=== PATIENT | male | born 1970 ===

== ENCOUNTER → 2020-05-22 | Outpatient (CLI) | payer OTHER ==
[~2020-05-22] MED LIST: Artificials Tea30 ML BOTHEYES; ERYT1OIN BOTHEYES; LEVSOD50 PO; LOSA50 PO; Omeprazole20 M1 PO; Prilosec Otc20 MG PO; SIMV10 PO; Simvastatin20 MG PO; Synthroid50 MCG PO
[2020-05-22 12:38] LABS: BASOPHILS ABSOLUTE AUTO 0.02 K/mm3 (0.00-0.23); BASOPHILS PERCENT AUTO 0 % (0-2); EOSINOPHILS ABSOLUTE AUTO 0.21 K/mm3 (0.00-0.68); EOSINOPHILS PERCENT AUTO 3 % (0-6); Hematocrit 47.3 % (37.0-53.0); Hemoglobin 16.6 g/dL (13.5-17.5); IMMATURE GRAN ABSOLUTE AUTO 0.02 K/mm3 (0.00-0.10); IMMATURE GRAN PERCENT AUTO 0 % (0-1); LYMPHOCYTES ABSOLUTE AUTO 2.43 K/mm3 (0.84-5.20); LYMPHOCYTES PERCENT AUTO 32 % (21-46); MONOCYTES ABSOLUTE AUTO 0.55 K/mm3 (0.16-1.47); MONOCYTES PERCENT AUTO 7 % (4-13); Mean Corpuscular HGB 30.9 pg (26.0-34.0); Mean Corpuscular HGB Conc 35.1 g/dL (31.5-36.5); Mean Corpuscular Volume 88 fL (80-100); Mean Platelet Volume 11.5 fL (9.1-12.4); NEUTROPHILS ABSOLUTE AUTO 4.42 K/mm3 (1.96-9.15); NEUTROPHILS PERCENT AUTO 58 % (41-73); Platelet Count 180 K/mm3 (150-400); RDW Standard Deviation 38.2 fL (35.1-46.3); Red Blood Cell Count 5.38 M/mm3 (4.30-5.90); White Blood Cell Count 7.65 K/mm3 (4.00-11.30)
[2020-05-22 13:15] LABS: Alanine Aminotransfer (ALT/SGP 38 U/L (12-78); Albumin, Blood 3.5 g/dL (3.4-5.0); Albumin/Globulin Ratio 0.9 (0.8-1.8); Alk Phos 100 U/L (50-136); Anion Gap 4 mmol/L (6-16); Aspartate Aminotrans (AST/SGOT 18 U/L (12-37); Bilirubin, Total 0.7 mg/dL (0.1-1.0); Blood Urea Nitrogen 14 mg/dL (8-24); Bun/Creatinine Ratio 16.2 (12.0-20.0); CHOL/HDL RATIO 4.7; CO2, Blood 28 mmol/L (21-32); Calcium, Blood 8.6 mg/dL (8.5-10.1); Chloride, Blood 107 mmol/L (98-108); Cholesterol 213 mg/dL (50-200); Creatinine, Blood 0.86 mg/dL (0.60-1.20); Globulin, Blood 4.1 g/dL (2.2-4.0); Glomerular Filtration Rate >60 (60-); Glucose, Blood 114 mg/dL (70-99); HDL Cholesterol 45 mg/dL (>39); LDL/HDL RATIO 2.9; Low Density Lipoprotein Chol 130 mg/dL (0-110); Potassium, Blood 4.1 mmol/L (3.5-5.5); Sodium, Blood 139 mmol/L (136-145); Total Protein, Blood 7.6 g/dL (6.4-8.2); Triglycerides 190 mg/dL (30-160); Very Low Density Lipoprot Chol 38 mg/dL (6-32)
== END | disposition home or self-care (01) ==
LOC: LAB 08:59 → LAB SHORT 08:59
PROVIDERS: Nurse Practitioner Family
DX: I10 Essential (primary) hypertension (principal); R73.03 Prediabetes; E66.01 Morbid (severe) obesity due to excess calories
CPT/HCPCS: 80053; 80061; 83036; 84443; 85025

== ENCOUNTER 2020-08-05 07:07 | Day surgery (SDC) | payer OTHER ==
[~2020-08-05] VITALS: Ht 170.2 cm; Wt 116.7 kg
--- NOTE | 2020-08-05 07:59 | NUR ---
History, Chart, Medications and Allergies reviewed before start of procedure. Patient states colon prep results clear. BUDGET COORDINATOR HERE.
--- NOTE | 2020-08-05 08:14 | NUR ---
08/05/20 0814 Jac Hernandez PATIENT DETERMINED TO BE ASA APPROPRIATE FOR FENTANYL AND VERSED SEDATION PRIOR TO START OF PROCEDURE BY DR. SHARIF. 3-LEAD EKG REVIEWED WITH PHYSICIAN PRIOR TO START OF PROCEDURE. Patient to ENDO 1. History, Chart, Medications and Allergies reviewed before start of procedure. MONITOR INTACT WITH CONTINUOUS PULSE OXIMETRY AND INTERMITTENT BP. History, Chart, Medications and Allergies reviewed before start of procedure. Patient confirms NPO status and agrees with scheduled surgery. PATIENT DETERMINED TO BE ASA APPROPRIATE FOR PROPOFOL SEDATION PRIOR TO START OF PROCEDURE BY 3-LEAD EKG REVIEWED WITH PHYSICIAN PRIOR TO START OF PROCEDURE. MONITOR INTACT WITH CONTINUOUS PULSE OXIMETRY AND INTERMITTENT BP.KOLE
--- NOTE | 2020-08-05 09:13 | NUR ---
REVIEWED DISCHARGE INSTRUCTIONS WITH PT AND HIS DAUGHTER. FIBER PAMPHLET PROVIDED. PT GIVEN SAMMARINESE DISCHARGE INSTRUCTIONS. SPOKE WITH [employer] FOR TRANSFER BACK HOME. [facility] WILL TRANSFERING PT HOME. PT HAS EAT AND TOLERATED FOOD WELL. Discharged via wheelchair to private car for ride home.
== END 2020-08-05 22:55 | disposition home or self-care (01) ==
LOC: ORSCMMR 07:07 → ORD 08:30 → ORSCMMR 08:30
PROVIDERS: Internal Medicine Gastroenterology
PROC: 0DBN8ZX Excision of Sigmoid Colon, Via Natural or Artificial Opening Endoscopic, Diagnostic (ICD-10-PCS; principal; 2020-08-05 08:30)
DX: K62.5 Hemorrhage of anus and rectum (principal); D12.5 Benign neoplasm of sigmoid colon; I10 Essential (primary) hypertension; K21.9 Gastro-esophageal reflux disease without esophagitis; Z79.899 Other long term (current) drug therapy
CPT/HCPCS: 88305; J2250; J2704; J3010; J7120

== ENCOUNTER 2021-11-10 11:40 | Emergency (ER) | payer OTHER ==
[~2021-11-10] VITALS: Ht 170.2 cm; Wt 117.9 kg
[2021-11-10] MEDS ORDERED: BANOPHEN25 MG PO (12:47)
[2021-11-10] MEDS ORDERED: METPRE4DP PO (12:47)
[2021-11-10] MEDS ORDERED: Triamcinolone A15 G3 TOP (15:33)
== END 2021-11-10 15:37 | disposition home or self-care (01) ==
LOC: ER 11:40
DX: L23.7 Allergic contact dermatitis due to plants, except food (principal); Z79.899 Other long term (current) drug therapy
CPT/HCPCS: J1100

== ENCOUNTER → 2022-08-26 | Outpatient (CLI) | payer OTHER ==
[~2022-08-26] MED LIST changes: +BANOPHEN25 MG PO; +METPRE4DP PO; +Triamcinolone A15 G3 TOP
[2022-08-26 11:55] LABS: BASOPHILS ABSOLUTE AUTO 0.03 K/mm3 (0.00-0.23); BASOPHILS PERCENT AUTO 0 % (0-2); EOSINOPHILS ABSOLUTE AUTO 0.36 K/mm3 (0.00-0.68); EOSINOPHILS PERCENT AUTO 4 % (0-6); Hematocrit 45.3 % (37.0-53.0); Hemoglobin 16.1 g/dL (13.5-17.5); IMMATURE GRAN ABSOLUTE AUTO 0.02 K/mm3 (0.00-0.10); IMMATURE GRAN PERCENT AUTO 0 % (0-1); LYMPHOCYTES ABSOLUTE AUTO 2.63 K/mm3 (0.84-5.20); LYMPHOCYTES PERCENT AUTO 32 % (21-46); MONOCYTES ABSOLUTE AUTO 0.62 K/mm3 (0.16-1.47); MONOCYTES PERCENT AUTO 8 % (4-13); Mean Corpuscular HGB 31.1 pg (26.0-34.0); Mean Corpuscular HGB Conc 35.5 g/dL (31.5-36.5); Mean Corpuscular Volume 88 fL (80-100); Mean Platelet Volume 11.6 fL (9.1-12.4); NEUTROPHILS ABSOLUTE AUTO 4.52 K/mm3 (1.96-9.15); NEUTROPHILS PERCENT AUTO 55 % (41-73); Platelet Count 197 K/mm3 (150-400); RDW Coefficient Variation 12.7 % (11.7-14.2); RDW Standard Deviation 40.3 fL (35.1-46.3); Red Blood Cell Count 5.17 M/mm3 (4.30-5.90); White Blood Cell Count 8.18 K/mm3 (4.00-11.30)
[2022-08-26 12:07] LABS: Albumin, Blood 3.6 g/dL (3.4-5.0); Albumin/Globulin Ratio 0.9 (0.8-1.8); Bilirubin, Total 0.7 mg/dL (0.1-1.0); Calcium, Blood 8.7 mg/dL (8.5-10.1); Creatinine, Blood 0.92 mg/dL (0.60-1.20); Globulin, Blood 3.8 g/dL (2.2-4.0); Potassium, Blood 3.7 mmol/L (3.5-5.5); Total Protein, Blood 7.4 g/dL (6.4-8.2)
== END | disposition home or self-care (01) ==
LOC: LAB SHORT 09:33 → LAB 09:33
PROVIDERS: Nurse Practitioner Family
DX: I10 Essential (primary) hypertension (principal); R73.03 Prediabetes
CPT/HCPCS: 80053; 83036; 85025

== ENCOUNTER 2024-06-21 06:13 | Day surgery (SDC) | payer OTHER ==
[2024-06-21] VITALS (12 sets, daily range): BP systolic 115–1025; BP diastolic 69–100
[~2024-06-21] VITALS: Ht 170.2 cm; Wt 127.7 kg
[~2024-06-21 06:13] MED LIST changes: +ATOR20 PO; +DOXA4 PO; +METAMUCIL POWD798 GM; +METF500 PO; +OMEP20ER PO; +SPIR25 PO
[2024-06-21] MEDS ORDERED: Ampicillin Sod/Sulbactam Sod 3 GM in NS 100 ML IV SCH (06:20)
[2024-06-21] MEDS ORDERED: Lactated Ringer's 1,000 ML IV SCH (06:20)
[2024-06-21] MEDS ORDERED: Acetaminophen 500 MG Tab PO ONE (07:05)
[2024-06-21] MEDS ORDERED: Ondansetron HCl 2 MG / ML 2ML Vial ONE (07:08)
[2024-06-21] MEDS ORDERED: Lidocaine HCl 2% 20 ML MDV ONE (07:08)
[2024-06-21] MEDS ORDERED: propofoL 20 ML IV ONE (07:08)
[2024-06-21] MEDS ORDERED: Rocuronium Bromide 10 MG/ML 5ML Injection IV ONE (07:08)
[2024-06-21] MEDS ORDERED: Bupivacaine 0.5% HCl 5 MG/ML 30MLVIAL ONE (07:10)
[2024-06-21] MEDS ORDERED: FentaNYL Citrate 50 MCG/ML 2 ML Injection ONE (07:14)
[2024-06-21] MEDS ORDERED: Labetalol HCL 5 MG/ML 4ML Injection (Single Dose) ONE (07:35)
[2024-06-21] MEDS ORDERED: Lidocaine 2%-Epineph 1:200000 20 ML SDV ONE (07:47)
[2024-06-21] MEDS ORDERED: Sugammadex Sodium 200 MG/2ML SDV (100 MG/ML) ONE (08:01)
[2024-06-21] MEDS ORDERED: OxyCODONE 5 mg/Acetamin 325 mg TABLET PO PRN (08:35)
--- NOTE | 2024-06-21 09:58 | NUR ---
Discharge instructions reviewed with patient. Patient verbalizes understanding. Copy given to patient to take home. [place] dressing c/d/i. Extra per pads provided. Prescription given to pt's trailer driver. Sits bath provided. Patient States Post-Procedure ride home has been arranged. Discharged via wheelchair to private car for ride home.
== END 2024-06-21 10:00 | disposition home or self-care (01) ==
LOC: ORSCMMR 06:13 → ORD 07:30 → ORSCMMR 10:00
PROVIDERS: Surgery
PROC: 06BY0ZC Excision of Hemorrhoidal Plexus, Open Approach (ICD-10-PCS; principal; 2024-06-21 07:30)
PROC: 0DBQ7ZX Excision of Anus, Via Natural or Artificial Opening, Diagnostic (ICD-10-PCS; principal; 2024-06-21 07:30)
DX: K64.2 Third degree hemorrhoids (principal); K64.4 Residual hemorrhoidal skin tags; K62.89 Other specified diseases of anus and rectum; I10 Essential (primary) hypertension; G47.33 Obstructive sleep apnea (adult) (pediatric); K21.9 Gastro-esophageal reflux disease without esophagitis; E11.9 Type 2 diabetes mellitus without complications; Z79.899 Other long term (current) drug therapy; E66.01 Morbid (severe) obesity due to excess calories; Z68.41 Body mass index [BMI] 40.0-44.9, adult
CPT/HCPCS: 82947; 88305; A9270; J0295; J2405; J2704; J3010; J7120